=== PATIENT | female | born 1970 | race Caucasian/White ===

== ENCOUNTER 2021-01-26 07:57 | Inpatient (IN) | payer OTHER ==
[2021-01-25 19:25] LABS: INFLUENZA A NEGATIVE (NEGATIVE); INFLUENZA B NEGATIVE (NEGATIVE); RESPIRATORY SYNCTIAL VIRUS NEGATIVE (Negative)
[~2021-01-26 07:57] MED LIST: CLINDAMYCIN-D5W 900 MG/50 ML*** 900 MG/50 ML BAG IV STA
[2021-01-26] MEDS ORDERED: CLINDAMYCIN-D5W 900 MG/50 ML*** 900 MG/50 ML BAG IV ONE (08:37)
[2021-01-26] MEDS ORDERED: Lactated Ringers 1,000 ML IV ONE (08:37)
[2021-01-26] MEDS: Lactated Ringers 1,000 ML IV SCH ×2 (08:47→15:50)
[2021-01-26] MEDS ORDERED: Versed 2 MG/2 ML Injection IV ONE (09:41)
[2021-01-26] MEDS ORDERED: Versed 2 MG/2 ML Injection ONE (09:43)
[2021-01-26] MEDS ORDERED: BRIDION 200MG/2ML IV ONE (09:57)
[2021-01-26] MEDS ORDERED: SUBLIMAZE 100 MCG/2 ML ONE (09:57)
[2021-01-26] MEDS ORDERED: Zofran 4 MG/2 ML VIAL ONE (09:57)
[2021-01-26] MEDS ORDERED: DIPRIVAN 200 MG/20 ML IV ONE (09:57)
[2021-01-26] MEDS ORDERED: TORAdol 30 mg Injection ONE (09:57)
[2021-01-26] MEDS ORDERED: Xylocaine-Mpf 2% 5 Ml Vial ONE (09:57)
[2021-01-26] MEDS ORDERED: Zemuron 100 MG/10 ML ONE (09:57)
[2021-01-26] MEDS ORDERED: Astramorph-Pf 5 MG/10 ML ONE (10:00)
[2021-01-26] MEDS ORDERED: MARCAINE 0.5%-EPI 1:200,000 VL IJ ONE (12:06)
[2021-01-26] MEDS ORDERED: Marcaine 0.5%/Epinephrine 10 ML ONE (12:11)
[2021-01-26] MEDS ORDERED: Zofran 4 MG/2 ML VIAL IV PRN ×2 (13:30→13:54)
[2021-01-26] MEDS ORDERED: DEMEROL 50 MG IV PRN (13:30)
[2021-01-26] MEDS ORDERED: MORPHINE SULFATE 2 MG INJ IV PRN (13:30)
[2021-01-26] MEDS ORDERED: CLARITIN 10 MG PO PRN (13:30)
[2021-01-26] MEDS ORDERED: BENADRYL 50 MG/ML IV PRN (13:30)
[2021-01-26] MEDS ORDERED: Nubain 10 MG/ML IV PRN (13:30)
[2021-01-26] MEDS ORDERED: Narcan 0.4 MG/ML IV PRN (13:30)
[2021-01-26] MEDS ORDERED: Sodium Chloride 0.9% 10 ML FLUSH Syringe IJ PRN (13:30)
[2021-01-26 13:40] LABS: Appearance CLEAR (CLEAR); Bilirubin NEGATIVE (NEGATIVE); Blood MODERATE Ery/ul (0-5); Glucose NEGATIVE (NEGATIVE); Ketones NEGATIVE (NEGATIVE); Leukocyte Esterase NEGATIVE (NEGATIVE); Nitrite NEGATIVE (NEGATIVE); Protein,Urine Dip NEGATIVE (Negative); Specific Gravity 1.004 (1.005-1.025); Urobilinogen NEGATIVE mg/dL (0-1)
[2021-01-26] MEDS: Mylicon 80MG PO SCH ×2 (15:00→21:19)
[2021-01-26] MEDS: CLINDAMYCIN-D5W 900 MG/50 ML*** 900 MG/50 ML BAG IV SCH ×2 (15:00→21:19)
[2021-01-26] MEDS: Reglan 10 MG/2 ML IV SCH ×2 (15:00→21:20)
[2021-01-26 18:30] LABS: Hematocrit 27.9 % (35-47); Hemoglobin 8.8 gm/dl (12.0-16.0); Mean Cell Volume 85.8 fl (78-100); Mean Corpuscular Hemoglobin 27.1 pg (26-32); Mean Corpuscular Hgb Concent. 31.5 g/dl (32-36); Mean Platelet Volume 11.8 fl (7.5-11.0); Platelet Count 292 K/mm3 (150-450); Red Blood Count 3.25 M/mm3 (4.1-5.4); Red Cell Distribution Width 14.8 % (11.5-14.0)
[2021-01-26] MEDS: Colace 100 MG PO SCH (21:19)
[2021-01-27] MEDS ORDERED: Sodium Chloride 0.9% 1000 ML 1,000 ML IV STA (00:20)
[2021-01-27] MEDS: Lactated Ringers 1,000 ML IV SCH ×2 (00:27→05:02)
[2021-01-27] MEDS: PERCOCET TABLET 5/325MG PO PRN ×3 (00:33→10:18)
[2021-01-27] MEDS: Mylicon 80MG PO SCH ×3 (05:02→21:27)
[2021-01-27] MEDS: Reglan 10 MG/2 ML IV SCH ×3 (05:02→21:27)
[2021-01-27 05:37] LABS: Hematocrit 24.8 % (35-47); Hemoglobin 7.7 gm/dl (12.0-16.0); Mean Cell Volume 85.8 fl (78-100); Mean Corpuscular Hemoglobin 26.6 pg (26-32); Mean Platelet Volume 12.5 fl (7.5-11.0); Platelet Count 253 K/mm3 (150-450); Red Blood Count 2.89 M/mm3 (4.1-5.4); Red Cell Distribution Width 14.9 % (11.5-14.0); White Blood Count 12.4 K/mm3 (4.0-10.5)
[2021-01-27 06:14] LABS: ALKALINE PHOSPHATASE 33 U/L (38-126); ANION GAP 8.3 MEQ/L (5-15); BLOOD UREA NITROGEN 10 mg/dL (7-17); CHLORIDE 106 mmol/L (98-107); Calcium 7.7 mg/dL (8.4-10.2); Carbon Dioxide 25 mmol/L (22-30); Creatinine 1 0.64 mg/dL (0.52-1.04); EST GLOMERULAR FILTRATION RATE > 60.0 ML/MIN; Glucose 113 mg/dL (74-106); Potassium 3.8 mmol/L (3.5-5.1); SGOT/AST 25 U/L (14-36); SGPT/ALT 13 U/L (0-35); SODIUM 135 mmol/L (137-145); Total Protein 5.6 g/dL (6.3-8.2)
[2021-01-27] MEDS: ENOXAPARIN SODIUM SQ SCH (08:33)
[2021-01-27] MEDS ORDERED: HOLD NARCOTIC ANALGESICS AND SEDATIVES X24 HR MC SCH (10:00)
--- NOTE | 2021-01-27 10:12 | OP ---
SURGERY DATE/TIME: 01/26/2021 1028 PREOPERATIVE DIAGNOSIS: Enlarged fibroid uterus and abnormal uterine bleeding. POSTOPERATIVE DIAGNOSIS: Enlarged fibroid uterus and abnormal uterine bleeding with suspicious right ovary. PROCEDURES: 1) Total abdominal hysterectomy. 2) Right salpingo-oophorectomy. 3) Left salpingectomy. SURGEON: Shivam Jackson D.O. CERTIFIED PATHOLOGY ASSISTANT: Wesley Rodriguze surgical clinical reviewer. ANESTHESIA: General. ESTIMATED BLOOD LOSS: 150 cc. COMPLICATIONS: None. INDICATIONS: The risks, benefits, indications and alternatives of the procedure were reviewed with the patient prior to the procedure. The patient understood the risk of infection, bleeding, bowel injury, bladder injury, ureteral injury, incisional hernia, pelvic infection and clotting disorder that may be associated with the surgery however desires to have the surgery as a possible means to alleviate her current medical condition. DESCRIPTION OF PROCEDURE AND FINDINGS: At this point the patient is taken to the operating room, placed in supine position, given general sedation, prepared and draped in the usual sterile fashion. A Pfannenstiel incision was made approximately 2 cm above the symphysis pubis and extended sharply through the rectus fascia. The fascia was then incised bilaterally with curved Garcia scissors and the muscle of the anterior abdominal wall in the midline by sharp and blunt dissection. The peritoneum was then grasped between two pickups elevated and entered sharply with Metzenbaum scissors. The pelvis is then examined and noted to have a 15 week size uterus. At this point O'Jose-O'Horton retractor was placed into the incision and the bowel packed away with moist laparotomy sponges. At this point a tenaculum is then placed into the fundus of the uterus and was retracted and lifted up. The LigaSure was then used. It was placed over the left utero-ovarian ligament where it was clamped, coagulated and cut and taken down to the round ligament towards the uterine vasculature on its left side. The ovary appeared to be within normal limits on its side with no excrescences that were seen. From this point the same procedure was performed on the right side. However, the right ovary appears to be suspicious and the right infundibulopelvic ligament was clamped, coagulated and cut and taken down through the round ligament towards the uterine vasculature on its side. From this point the uterine arteries were skelentonized bilaterally, clamped with C-clamps, transected and suture ligated with 0 Vicryl suture. Again hemostasis was assured. From this point the uterosacral ligaments were clamped on both sides, transected and suture ligated in similar fashion. At this point the Brandee clamps were used and placed over the cervix on either side and was used to excise using the #10 blade. The vaginal cuff angles were closed with figure-of-8 sutures of 0 Vicryl and were transfixed to the ipsilateral Cardinal and uterosacral ligaments. The remainder of the vaginal cuff was closed with a series of interrupted 0 Vicryl figure-of-8 sutures. Hemostasis was assured. The left fallopian tube was then lifted up with a [place]ander and LigaSure was used to excise along the mesosalpinx and was done so without complication. Again, the left ovary appeared to be within normal limits. The pelvis was copiously irrigated with warm normal saline at this time. All lap, sponge and instruments were then removed from the patient's abdomen. Fibrillar was placed on the surface of the vaginal cuff for further hemostasis. At this point the fascia was re-approximated with 0 Vicryl in running fashion. The subcutaneous layer was closed with 3-0 Vicryl suture and the skin was closed with absorbable kari called INSORB. Sponge, lap and instruments counts were correct x2. The patient was then taken to the recovery room in stable condition.
[2021-01-27] MEDS: Colace 100 MG PO SCH ×2 (10:18→21:27)
[2021-01-27 13:12] LABS: Hematocrit 25.9 % (35-47); Hemoglobin 8.1 gm/dl (12.0-16.0); Mean Cell Volume 85.8 fl (78-100); Mean Corpuscular Hemoglobin 26.8 pg (26-32); Mean Corpuscular Hgb Concent. 31.3 g/dl (32-36); Mean Platelet Volume 11.2 fl (7.5-11.0); Platelet Count 247 K/mm3 (150-450); Red Blood Count 3.02 M/mm3 (4.1-5.4); Red Cell Distribution Width 14.9 % (11.5-14.0); White Blood Count 10.5 K/mm3 (4.0-10.5)
[2021-01-27] MEDS: TORAdol 30 mg Injection IV PRN ×2 (13:42→20:01)
[2021-01-28] MEDS: Mylicon 80MG PO SCH (05:09)
[2021-01-28] MEDS: Reglan 10 MG/2 ML IV SCH (05:09)
[2021-01-28] MEDS: TORAdol 30 mg Injection IV PRN (05:11)
--- NOTE | 2021-01-28 07:35 | PCM.NOTE ---
Date and Time: 01/28/21 0734 Subjective Assessment: pod 2 pt resting in bed and doing well. pt ambulating and tolerating diet. vss afebrile abd; soft incision c/d/intact ext; no clubbingy cyanosis or edema a/p sp latisha rso left salpingectomy secondary to enlarged fibroid uterus abnormal uterine bleeding dc home today fu office in 2 wks OBJECTIVE DATA Vital Signs: Vital Signs - 24 hr Temp Pulse Resp BP Pulse Ox 01/28/21 04:00 98.1 F 87 18 109/66 97 01/27/21 23:46 98.3 F 77 17 107/58 96 01/27/21 21:00 98.2 F 87 17 110/55 96 01/27/21 19:28 98 01/27/21 16:40 98.1 F 73 16 109/56 100 01/27/21 12:35 96.9 F 66 16 91/56 95 Pain Assessment - Last Documented Pain Intensity 0 Pain Scale Used 0-10 Pain Scale Intake and Output: Intake & Output 01/25/21 01/26/21 01/27/21 01/28/21 11:59 11:59 11:59 11:59 Intake Total 1295 380 Output Total 750 750 Balance 545 -370 Weight 60.328 kg 60.6 kg Lab Results: Lab Results-Last 24 Hours 01/27/21 Range/Units 13:05 WBC 10.5 (4.0-10.5) K/mm3 RBC 3.02 L (4.1-5.4) M/mm3 Hgb 8.1 L (12.0-16.0) gm/dl Hct 25.9 L (35-47) % MCV 85.8 (78-100) fl MCH 26.8 (26-32) pg MCHC 31.3 L (32-36) g/dl RDW 14.9 H (11.5-14.0) % Plt Count 247 (150-450) K/mm3 MPV 11.2 H (7.5-11.0) fl
[2021-01-28 07:37] VITALS: BP 125/62; PULSE 75; O2SAT 98
--- NOTE | 2021-01-28 07:39 | PCM.DS ---
Discharge Summary Date of Admission: 01/26/21 07:57 Admitting Physician: AIMEE HONG DO Primary Care Provider: MAYRA THORNE GEOVANY Allergies Allergies Penicillins Allergy (Intermediate, Verified 01/26/21 13:31) [facility] Summary - Hospital Course Hospital Course: pt admitted on january 26 for undergoing total abdominal hysterectomy right salpingoophorectomy and left salpingectomy secondary to enlarged fibroid uterus and abnormal uterine bleeding where ovary had been removed secondary to being suspicious for abnormal tissue. during postop period pt did well with stable hgb level able to ambulate and tolerate diet. pt at this time not requiring any narcotic for pain management and is stable for discharge. pt advised to fu in office in 2 wks. all questions answered to her satisfaction. - Vitals & Intake/Output Vital Signs: Vital Signs Temperature 98.1 F 01/28/21 04:00 Pulse Rate 87 01/28/21 04:00 Respiratory Rate 18 01/28/21 04:00 Blood Pressure 109/66 01/28/21 04:00 O2 Sat by Pulse Oximetry 97 01/28/21 04:00 Intake & Output: Intake & Output 01/25/21 01/26/21 01/27/21 01/28/21 11:59 11:59 11:59 11:59 Intake Total 1295 380 Output Total 750 750 Balance 545 -370 Weight 60.328 kg 60.6 kg - Lab Result Diagrams: 01/27/21 13:05 01/27/21 04:30 Lab Results-Last 24 Hrs: Lab Results-Last 24 Hours 01/27/21 Range/Units 13:05 WBC 10.5 (4.0-10.5) K/mm3 RBC 3.02 L (4.1-5.4) M/mm3 Hgb 8.1 L (12.0-16.0) gm/dl Hct 25.9 L (35-47) % MCV 85.8 (78-100) fl MCH 26.8 (26-32) pg MCHC 31.3 L (32-36) g/dl RDW 14.9 H (11.5-14.0) % Plt Count 247 (150-450) K/mm3 MPV 11.2 H (7.5-11.0) fl Micro Results-Entire Visit: Microbiology 01/26/21 10:45 Urine Culture - Preliminary Urine, Catheterized NO GROWTH TO DATE - Procedures and Test Procedures and Tests throughout Hospitalization: Therapy Orders & Screens 01/26/21 13:34 Incentive Spirometry UD Comment: Diagnosis: S/P JEANNA WITH POSSIBLE OOPHERECTOMY 01/26/21 16:06 Respiratory Therapy Assessment DAILY Comment: Diagnosis: S/P JEANNA WITH POSSIBLE OOPHERECTOMY Final Diagnosis/Problem List - Final Discharge Diagnosis/Problem (1) S/P total abdominal hysterectomy Current Visit: Yes Status: Acute Code(s): Z90.710 - ACQUIRED ABSENCE OF BOTH CERVIX AND UTERUS (2) S/P right oophorectomy Current Visit: Yes Status: Acute Code(s): Z90.721 - ACQUIRED ABSENCE OF OVARIES, UNILATERAL - Discharge Disposition: Home, Self-Care Condition: Stable Prescriptions: No Action No Reportable Medications [No Reported Medications] Follow up with: MAYRA THORNE MD [Primary Care Provider] - 02/03/21 1:45 pm
--- NOTE | 2021-01-28 07:40 | PCM.DCORD ---
- Discharge Disposition: Home, Self-Care Condition: Stable Prescriptions: No Action No Reportable Medications [No Reported Medications] Additional Instructions: keep incision clean and dry with soap and water no heavy lifting no vaginal intercourse may shower but no bath for 2 wks no driving for 10 days Follow up with: MAYRA THORNE MD [Primary Care Provider] - 02/03/21 1:45 pm AIMEE HONG DO [ACTIVE STAFF] - 2 weeks
[2021-01-28] MEDS: ENOXAPARIN SODIUM SQ SCH (08:55)
[2021-01-28] MEDS: Colace 100 MG PO SCH (08:56)
== END 2021-01-28 09:33 | disposition home or self-care (01) | DRG 741 ==
LOC: MED SURG 07:57 → EDSTATUS 09:41
PROVIDERS: ADMIT Obstetrics & Gynecology; ATTEND Obstetrics & Gynecology
PROC: 0UT90ZZ Resection of Uterus, Open Approach (ICD-10-PCS; principal; 2021-01-26)
PROC: 0UT00ZZ Resection of Right Ovary, Open Approach (ICD-10-PCS; 2021-01-26)
PROC: 0UT70ZZ Resection of Bilateral Fallopian Tubes, Open Approach (ICD-10-PCS; 2021-01-26)
DX: C54.1 Malignant neoplasm of endometrium (principal); N85.2 Hypertrophy of uterus; N93.9 Abnormal uterine and vaginal bleeding, unspecified; Z20.828 Contact with and (suspected) exposure to other viral communicable diseases; M54.9 Dorsalgia, unspecified; D25.9 Leiomyoma of uterus, unspecified
CPT/HCPCS: 0241U; 36415; 58150; 62322; 64488; 76937; 76942; 80053; 80175; 81001; 81025; 84703; 85027; 86901; 87086; 88341; 88342; 94762; J1200; J1650; J1885; J2175; J2250; J2274; J2405; J2704; J3010; A9270-GY

== ENCOUNTER 2021-02-26 13:56 | Emergency (ER) | payer OTHER ==
--- NOTE | 2021-02-26 15:33 | XRAY ---
Indication: Elevated d-dimer. Multiple contiguous axial images obtained through the chest using 100 cc Isovue 370 contrast and PE protocol. Comparison: February 08, 2021. There is good opacification of the pulmonary arteries including lobar and segmental branches. No pulmonary embolus. Heart not enlarged. Aorta is normal in course and caliber. Stable tiny left perihilar calcified nodes. No pathologic mediastinal/hilar lymphadenopathy. Lungs remain clear with stable incidental small left base calcified granuloma. Bony thorax intact. Limited upper abdomen including adrenal glands unremarkable. Impression: Continued negative CT chest with contrast exam again with incidental old granulomatous disease.
[2021-02-26 15:44] VITALS: O2SAT 100
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
[2021-02-26 16:12] VITALS: BP 108/47; PULSE 79
== END 2021-02-26 16:43 | disposition home or self-care (01) ==
LOC: ED 13:56
DX: R07.9 Chest pain, unspecified (principal)
CPT/HCPCS: 36000; 36415; 71260; 84484; 93005; 99284